=== PATIENT | female | born 1960 | race Hispanic/Latino ===

== ENCOUNTER 2016-11-22 12:08 | Outpatient (CLI) | payer OTHER ==
--- NOTE | 2016-11-22 13:59 | XRay Report ---
LEFT SHOULDER: Routine views demonstrate normal bony and soft tissue structures with normal joint alignment of the shoulder. IMPRESSION: Normal study.
== END 2016-11-22 12:09 | disposition home or self-care (01) ==
LOC: SPVIMAG 12:08
PROVIDERS: ATTEND Family Medicine
DX: M25.512 Pain in left shoulder (principal)

== ENCOUNTER 2017-01-09 09:43 | Outpatient (CLI) | payer OTHER ==
--- NOTE | 2017-01-10 14:16 | Mammography Report ---
BILATERAL DIGITAL SCREENING MAMMOGRAM with CAD : 01/09/17 09:43:00 CLINICAL: Routine screening. COMPARISON:12/29/15 FINDINGS: The breasts are heterogeneously dense, which may obscure small masses.Right outer biopsy clip and left inner clip. No new mass, architectural distortion or suspicious calcifications. IMPRESSION: No mammographic evidence of malignancy. BI-RADS CATEGORY: 2 -- Benign RECOMMENDATION: Routine mammographic screening in one year. COMMENT: Patient follow-up letters are generated by our [employer] application.
== END 2017-01-09 09:44 | disposition home or self-care (01) ==
LOC: SPVWC 09:43
PROVIDERS: ATTEND Family Medicine
DX: Z12.31 Encounter for screening mammogram for malignant neoplasm of breast (principal)
CPT/HCPCS: 77067; G0202

== ENCOUNTER 2018-01-26 11:56 | Outpatient (CLI) | payer OTHER ==
--- NOTE | 2018-01-26 16:22 | Mammography Report ---
BILATERAL DIGITAL SCREENING MAMMOGRAM with CAD : 01/26/18 11:56:00 CLINICAL: Routine screening.Previous bilateral benign biopsies. COMPARISON:01/09/17 and 12/29/15 FINDINGS: The breasts are heterogeneously dense, which may obscure small masses.A right outer biopsy clip and a left upper inner biopsy clip. The left clip is adjacent to a stable circumscribed mass. No new mass, architectural distortion or suspicious calcifications. IMPRESSION: No mammographic evidence of malignancy. BI-RADS CATEGORY: 2 -- Benign RECOMMENDATION: Routine mammographic screening in one year. COMMENT: Patient follow-up letters are generated by our [employer] application.
== END 2018-01-26 11:57 | disposition home or self-care (01) ==
LOC: SPVWC 11:56
PROVIDERS: ATTEND Family Medicine
DX: Z12.31 Encounter for screening mammogram for malignant neoplasm of breast (principal)
CPT/HCPCS: 77067

== ENCOUNTER 2019-01-29 11:14 | Outpatient (CLI) | payer OTHER ==
--- NOTE | 2019-01-29 15:45 | Mammography Report ---
BILATERAL DIGITAL SCREENING MAMMOGRAM with CAD : 01/29/19 11:14:00 CLINICAL: Routine screening. COMPARISON:01/26/18 FINDINGS: The breasts are heterogeneously dense, which may obscure small masses.A right outer biopsy clip and a left inner biopsy clip. A stable circumscribed left inner nodule near the clip. No and mass, architectural distortion or suspicious calcifications. IMPRESSION: No mammographic evidence of malignancy. BI-RADS CATEGORY: 2 -- Benign RECOMMENDATION: Routine mammographic screening in one year.
== END 2019-01-29 11:15 | disposition home or self-care (01) ==
LOC: SPVWC 11:14
PROVIDERS: ATTEND Family Medicine
DX: Z12.31 Encounter for screening mammogram for malignant neoplasm of breast (principal)
CPT/HCPCS: 77067

== ENCOUNTER 2020-09-22 09:40 | Outpatient (CLI) | payer OTHER ==
--- NOTE | 2020-09-25 08:37 | Mammography Report ---
DIGITAL SCREENING MAMMOGRAM WITH CAD, 09/22/2020 CLINICAL INFORMATION / INDICATION: Routine screening mammography. TECHNIQUE: Digital bilateral 2D mammography was obtained in the craniocaudal and mediolateral obliqu e projections. This examination was interpreted with the benefit of Computer-Aided Detection analysis . COMPARISON: 01/29/2019, 01/26/2018 FINDINGS: Breast Density: The breasts are heterogeneously dense, which may obscure small masses. No dominant mass, suspicious calcifications, or architectural distortion in either breast. Bilateral benign nodularity and biopsy clips are unchanged. IMPRESSION: No mammographic evidence of malignancy. Follow up recommendation: Routine yearly BI-RADS Category 2: Benign. A "normal" or negative report should not discourage follow up or biopsy of a clinically significant f inding. A written summary of these findings will be mailed to the patient. The patient will be entered into a mammography reporting system which will generate a reminder letter for the patient's next appointmen t at the appropriate interval. The [employer] recommends yearly mammograms starting at age 40 and continuing as l cassie as a woman is in good health. Breast MRI is recommended for women with an approximate 20-25% or greater lifetime risk of breast cancer, including women with a strong family history of breast or ova lazaro cancer or who have been treated for Hodgkin's disease. Signer Name: aRul Wilhelm MD Signed: 09/25/2020 8:33 AM Workstation Name: [id number]
== END 2020-09-22 09:41 | disposition home or self-care (01) ==
LOC: SPVWC 09:40
PROVIDERS: ATTEND Family Medicine
DX: Z12.31 Encounter for screening mammogram for malignant neoplasm of breast (principal); N63.20 Unspecified lump in the left breast, unspecified quadrant; N63.10 Unspecified lump in the right breast, unspecified quadrant
CPT/HCPCS: 77067

== ENCOUNTER 2020-12-08 09:51 | Outpatient (CLI) | payer OTHER ==
--- NOTE | 2020-12-08 11:17 | Mammography Report ---
DEXA BONE DENSITY SCAN INDICATION: SCREENING FOR OSTEOPOROSIS. COMPARISON: 04/05/2016. LUMBAR SPINE (L1-L4): Bone mineral density (BMD) is 1.006 g/cm2. T-score is -0.4 (standard deviations of Young Adult mean). Z-score is 1.2 (standard deviations of Age Matched mean). LEFT FEMORAL NECK: Bone mineral density (BMD) is 0.813 g/cm2. T-score is -0.3 (standard deviations of Young Adult mean). Z-score is 0.5 (standard deviations of Age Matched mean). IMPRESSION: 1. WHO Classification: Normal bone density. Fracture Risk: Not Increased. 2. Bone density has decreased 9.9% at the left hip and 11.8% at the spine when compared with the most recent exam. Signer Name: Bandar Martínez MD Signed: 12/08/2020 11:12 AM Workstation Name: [id number]
== END 2020-12-08 09:52 | disposition home or self-care (01) ==
LOC: SPVWC 09:51
PROVIDERS: ATTEND Family Medicine
DX: Z13.820 Encounter for screening for osteoporosis (principal)
CPT/HCPCS: 77080

== ENCOUNTER 2021-09-24 11:07 | Outpatient (CLI) | payer OTHER ==
--- NOTE | 2021-09-25 13:06 | Mammography Report ---
DIGITAL SCREENING MAMMOGRAM WITH CAD, 09/24/2021 CLINICAL INFORMATION / INDICATION: Routine screening mammography. SCREENING MAMMO Z12.31 TECHNIQUE: Digital bilateral 2D mammography was obtained in the craniocaudal and mediolateral obliqu e projections. This examination was interpreted with the benefit of Computer-Aided Detection analysis . COMPARISON: 09/22/2020 FINDINGS: Breast Density: There are scattered areas of fibroglandular density. No dominant mass, suspicious calcifications, or architectural distortion in either breast. Stable nodule with adjacent biopsy clip in the left breast and there is also again a biopsy clip in t he right breast as well. IMPRESSION: No mammographic evidence of malignancy. Follow up recommendation: Routine yearly BI-RADS Category 2: Benign. A "normal" or negative report should not discourage follow up or biopsy of a clinically significant f inding. A written summary of these findings will be mailed to the patient. The patient will be entered into a mammography reporting system which will generate a reminder letter for the patient's next appointmen t at the appropriate interval. The [employer] recommends yearly mammograms starting at age 40 and continuing as l cassie as a woman is in good health. Breast MRI is recommended for women with an approximate 20-25% or greater lifetime risk of breast cancer, including women with a strong family history of breast or ova lazaro cancer or who have been treated for Hodgkin's disease. Signer Name: Jayme Allen MD Signed: 09/25/2021 1:02 PM Workstation Name: [id number]
== END 2021-09-24 11:08 | disposition home or self-care (01) ==
LOC: SPVWC 11:07
PROVIDERS: ATTEND Family Medicine
DX: Z12.31 Encounter for screening mammogram for malignant neoplasm of breast (principal); N64.89 Other specified disorders of breast
CPT/HCPCS: 77067